=== PATIENT | male | born 1970 | race Caucasian/White ===

== ENCOUNTER 2018-04-26 15:31 | Emergency (ER) | payer OTHER ==
[~2018-04-26] VITALS: Ht 172.7 cm; Wt 77.1 kg
--- NOTE | ~2018-04-26 | EKG ---
[place] [address] [facility] [place] [address] ELECTROCARDIOGRAM REPORT Name: DEVEN DELVALLE Room #: [facility]P [facility]ENTERLas[facility] [id number] Admission: 04/26/18 Attend Phys: Discharge: 04/26/18 Date of : 74 Report #: [id number] THIS REPORT FOR: //name// [facility] ED Test Date: 2018-04-26 Test Time: 15:36:02 Pat Name: DEVEN DELVALLE Department: Room: Gender: M Data Entry Coordinator: MZOOK : 1970 Requested By: Craig Sr Order Number: [id number] MD: Bal Hamilton Measurements Intervals [place] Rate: 106 P: 22 AR: 150 QRS: 43 QRSD: 84 T: 24 QT: 330 QTc: 439 Interpretive Statements Sinus tachycardia Otherwise no significant abnormality Compared to ECG 04/03/2003 17:01:07 No significant changes Electronically Signed On 04-27-2018 7:51:43 CDT by Bal Hamilton [email or web address] <ELECTRONICALLY SIGNED> By: Bal Hamilton MD, MERGED WITH [facility] 04/27/18 [id number] Bal Hamilton MD, FACC /EPI
[~2018-04-26 15:31] MED LIST: FLEXERIL PO; NORCO 5-325 TA1 EACH PO
[2018-04-26] MEDS ORDERED: PROTONIX40 M4 PO (15:52)
[2018-04-26] MEDS ORDERED: WELLBUTRIN SR150 M1 PO (15:52)
[2018-04-26 15:54] VITALS: BP 154/100
[2018-04-26] MEDS ORDERED: MUCINEX SINUS-1 EACH PO (15:54)
[2018-04-26] MEDS ORDERED: AMOXICILLIN 50500 MG PO (16:17)
[2018-04-26] MEDS ORDERED: FLONASE 0.05%50 MCG NASAL (16:17)
[2018-04-26] MEDS ORDERED: PREDNISONE 20 M20 MG PO (16:17)
== END 2018-04-26 16:21 | disposition home or self-care (01) ==
LOC: ER 15:31
DX: H66.92 Otitis media, unspecified, left ear (principal); I10 Essential (primary) hypertension; F41.9 Anxiety disorder, unspecified; K21.9 Gastro-esophageal reflux disease without esophagitis; F17.210 Nicotine dependence, cigarettes, uncomplicated